=== PATIENT | male | born 2000 | race Caucasian/White ===

== ENCOUNTER 2018-10-29 17:33 | Emergency (ER) | payer OTHER ==
[~2018-10-29] VITALS: Ht 180.3 cm; Wt 59.9 kg
[2018-10-29] MEDS ORDERED: PENVK500 PO (18:58)
== END 2018-10-29 19:01 | disposition home or self-care (01) ==
LOC: ER 17:33
DX: J02.9 Acute pharyngitis, unspecified (principal)
CPT/HCPCS: 87081; 87430; 99283